=== PATIENT | male | born 1990 | race Two or more races ===

== ENCOUNTER 2020-09-24 00:51 | Inpatient (IN) | payer SELFPAY ==
[~2020-09-24] VITALS: Ht 182.9 cm; Wt 93.8 kg
[2020-09-24] MEDS ORDERED: ONDANSETRON HCL 4 MG/2 ML VIAL IV ONE ×2 (01:30→03:15)
[2020-09-24] MEDS ORDERED: SODIUM CHLORIDE 0.9% 1,000 ML IV ONE (01:30)
[2020-09-24] MEDS ORDERED: MORPHINE SULFATE 4 MG/ML SYR/VIAL IV ONE ×2 (01:30→03:15)
[2020-09-24 02:05] LABS: Basophils # (auto) 0 10 ^3/uL (0-0.2); Basophils % (auto) 0.1 % (0.0-2.0); Eosinophils # (auto) 0 10 ^3/uL (0-0.8); Eosinophils % (auto) 0.2 % (0.0-7.0); Hematocrit 49.1 % (41.0-53.0); Lymphocytes # (auto) 1.1 10 ^3/uL (0.4-5.4); Lymphocytes % (auto) 6.2 % (10.0-50.0); Mean Corpuscular Hemoglobin 30.9 pg (28.0-32.0); Mean Corpuscular Hgb Conc. 34.6 g/dL (32.0-36.0); Mean Corpuscular Volume 89.3 fL (80.0-100.0); Monocytes # (auto) 0.9 10 ^3/uL (0-1.3); Neutrophils # (auto) 15.6 10 ^3/uL (1.6-8.6); Neutrophils % (auto) 88.5 % (37.0-80.0); Nucleated Red Blood Cells % 0.1 %; Platelet Count (auto) 303 10^3/uL (140-450); Red Cell Distribution Width 12.6 % (11.8-14.3); White Blood Cell 17.7 10^3/uL (4.4-10.8)
[2020-09-24 02:20] LABS: INR 0.97 (0.9-1.15); Partial Thromboplastin Time 24.9 sec (23.0-31.2)
[2020-09-24 02:21] LABS: Albumin 4.1 g/dL (3.4-5.0); Calcium 8.6 mg/dL (8.5-10.1); Magnesium 1.9 mg/dL (1.6-2.6); Potassium 3.8 mmol/L (3.5-5.1)
[2020-09-24 02:23] LABS: BUN/Creatinine Ratio 15.7
[2020-09-24 02:30] LABS: Bilirubin, Total 0.5 mg/dL (0.2-1.0); Total Protein 8.2 g/dL (6.4-8.2)
[2020-09-24] MEDS ORDERED: SODIUM CHLORIDE 0.9% 1,000 ML IV SCH (05:15)
[2020-09-24] MEDS: cefTRIAXone 1GM/50ML D5W 50 ML IV SCH (08:53)
[2020-09-24] MEDS: PANTOPRAZOLE 40 MG/10 ML VIAL INJ IV SCH (10:00)
[2020-09-24] MEDS: MORPHINE SULFATE 4 MG/ML SYR/VIAL IV PRN ×3 (10:10→19:26)
[2020-09-24] MEDS: ONDANSETRON HCL 4 MG/2 ML VIAL IV PRN ×3 (10:11→19:24)
[2020-09-24] MEDS: LACTATED RINGER'S 1,000 ML IV SCH ×2 (13:57→21:18)
--- NOTE | 2020-09-24 16:38 | NUR ---
MS admit from ER SHANNON,SHANEL admitted to tele/MS after SBAR received. Patient oriented to DREW ÁLVAREZ RN primary RN,central, room 250,bed A, and unit policies regarding patient care and visiting hours. Patient weighed by bedscale and encouraged to call if they need something. All questions and concerns addressed, patient verbalized understanding.
[2020-09-24 17:37] VITALS: BP 133/74
[2020-09-24 17:54] VITALS: BP 133/74
--- NOTE | 2020-09-24 19:15 | NUR ---
Opening Shift Note Assumed care of patient, awake and alert. No S/S of distress/SOB or pain. Bed locked in lowest position, side rails UP X2, call light within reach. Instructed on POC and to call for assist PRN, will continue to monitor for changes Q1hr and PRN.
[2020-09-24 20:00] VITALS: BP 135/71
[2020-09-24 22:00] VITALS: BP 119/60
[2020-09-25] MEDS: LACTATED RINGER'S 1,000 ML IV SCH ×4 (02:34→22:35)
[2020-09-25 05:00] VITALS: BP 124/72
[2020-09-25] MEDS: ONDANSETRON HCL 4 MG/2 ML VIAL IV PRN ×2 (05:11→11:01)
[2020-09-25 06:02] LABS: Basophils # (auto) 0 10 ^3/uL (0-0.2); Basophils % (auto) 0.1 % (0.0-2.0); Eosinophils # (auto) 0 10 ^3/uL (0-0.8); Eosinophils % (auto) 0.2 % (0.0-7.0); Hemoglobin 14.5 g/dL (13.5-17.5); Lymphocytes # (auto) 1.2 10 ^3/uL (0.4-5.4); Lymphocytes % (auto) 7.7 % (10.0-50.0); Mean Corpuscular Hgb Conc. 34.5 g/dL (32.0-36.0); Mean Corpuscular Volume 90.1 fL (80.0-100.0); Monocytes # (auto) 1.4 10 ^3/uL (0-1.3); Monocytes % (auto) 9.3 % (0.0-12.0); Neutrophils # (auto) 12.3 10 ^3/uL (1.6-8.6); Neutrophils % (auto) 82.7 % (37.0-80.0); Nucleated Red Blood Cells % 0.1 %; Platelet Count (auto) 212 10^3/uL (140-450); Red Blood Cells 4.67 10^6/uL (4.5-5.90); Red Cell Distribution Width 12.6 % (11.8-14.3); White Blood Cell 14.9 10^3/uL (4.4-10.8)
[2020-09-25 06:18] LABS: Calcium 8.8 mg/dL (8.5-10.1); Potassium 3.5 mmol/L (3.5-5.1)
[2020-09-25 06:23] LABS: Albumin 3.5 g/dL (3.4-5.0); BUN/Creatinine Ratio 11.8; Bilirubin, Total 1.3 mg/dL (0.2-1.0)
[2020-09-25 09:00] VITALS: BP 127/75
[2020-09-25] MEDS: MORPHINE SULFATE 4 MG/ML SYR/VIAL IV PRN (11:01)
[2020-09-25] MEDS: cefTRIAXone 1GM/50ML D5W 50 ML IV SCH (11:02)
[2020-09-25] MEDS: PANTOPRAZOLE 40 MG/10 ML VIAL INJ IV SCH (11:02)
[2020-09-25 13:00] VITALS: BP 117/74
[2020-09-25 17:00] VITALS: BP 122/77
[2020-09-25 22:00] VITALS: BP 129/77
[2020-09-26] MEDS: LACTATED RINGER'S 1,000 ML IV SCH ×3 (02:01→18:35)
[2020-09-26 05:00] VITALS: BP 122/72
[2020-09-26 05:09] LABS: Urine Bacteria FEW /hpf (None Seen); Urine Blood Negative /uL (Negative); Urine Mucus FEW (None Seen); Urine WBC 1 /hpf (0 - 3)
[2020-09-26 09:13] VITALS: BP 95/61
[2020-09-26] MEDS ORDERED: LACTULOSE 20Gm/30ML SOLN PO PRN (10:00)
[2020-09-26] MEDS: cefTRIAXone 1GM/50ML D5W 50 ML IV SCH (10:41)
[2020-09-26] MEDS: PANTOPRAZOLE 40 MG/10 ML VIAL INJ IV SCH (10:41)
[2020-09-26 12:52] VITALS: BP 125/69
--- NOTE | 2020-09-26 14:29 | NUR ---
Nutrition Assessment Notes Please refer to link for full assessment notes. Est Energy needs: 9075-0696 kcals (25-30 kcal/kgBW) Est Protein needs: 76-97 gms/day (0.8-1.0 gm/kgBW) Will continue to monitor and reassess prn. Addendum: 09/26/20 at [address] Amended: Links added.
[2020-09-26 16:29] VITALS: BP 112/69
[2020-09-26 21:44] VITALS: BP 124/65
[2020-09-27] MEDS: LACTATED RINGER'S 1,000 ML IV SCH ×3 (01:15→14:38)
[2020-09-27 05:40] VITALS: BP 116/56
[2020-09-27 08:00] VITALS: BP 119/56
[2020-09-27] MEDS: PANTOPRAZOLE 40 MG/10 ML VIAL INJ IV SCH (09:06)
[2020-09-27] MEDS: cefTRIAXone 1GM/50ML D5W 50 ML IV SCH (09:06)
[2020-09-27 09:21] VITALS: BP 119/56
[2020-09-27] MEDS ORDERED: PANT40TA2 PO (11:46)
[2020-09-27 13:11] VITALS: BP 109/59
[2020-09-27 14:42] VITALS: BP 119/56
--- NOTE | 2020-09-27 17:47 | NUR ---
Discharge instructions given as ordered. Encourage to follow up with PMD as instructed. All questions and concerns addressed. Patient verbalized understanding. Medication reconciliation form completed and copy given to patient. IV removed with catheter intact, pressure dressing applied. Patient taken to vehicle via wheelchair with all personal belongings, accompanied by staff. No distress noted at time of departure.
== END 2020-09-27 17:45 | disposition home or self-care (01) | DRG 871 ==
LOC: ER 00:51 → OVERFLOW 00:52 → EAST 15:55
PROVIDERS: ADMIT Nurse Practitioner; ATTEND Internal Medicine Nephrology
DX: A41.9 Sepsis, unspecified organism (principal); K85.90 Acute pancreatitis without necrosis or infection, unspecified
CPT/HCPCS: 36415; 74176; 76705; 80053; 81001; 82150; 83690; 83735; 85025; 85610; 85730; 87040; 96361; 96365; 96375; 96376; C9113; G0378; J0696; J2405